=== PATIENT | female | born 1995 | race African-American/Black ===

== ENCOUNTER 2020-07-31 09:54 | Emergency (ER) | payer OTHER, SELFPAY ==
--- NOTE | 2020-07-31 10:17 | ED.FEMALEGU ---
HPI - Female Genitourinary General Chief complaint: Urogenital-Female Stated complaint: abd pain/foul odor Time Seen by Provider: 07/31/20 10:17 Source: patient and RN notes reviewed Mode of arrival: ambulatory Limitations: no limitations History of Present Illness HPI Narrative: 24-year-old presents to the [facility] with complaints of vaginal discharge and abnormal smell. States that she was seen at [facility] and discharged with nothing on Jul. Tried called but has been unable to get results. No chest pain or ABdominal pain. No nausea vomiting or diarrhea States that in December she delivered a baby but never followed up with [employer] care. Related Data Allergies Allergy/AdvReac Type Severity Reaction Status Date / Time No Known Allergies Allergy Verified 07/31/20 10:17 Review of Systems Review of Systems: Narrative: CONSTITUTIONAL: Denies fever, chills, or sweats. CARDIOVASCULAR: Denies chest pain, palpitations, or edema. RESPIRATORY: Denies cough or dyspnea. GASTROINTESTINAL: Denies abdominal pain, nausea, vomiting, or diarrhea. GENITOURINARY: Denies dysuria or hematuria. Vaginal discharge thick and abnormal smell SKIN: Denies rash or itching. MUSCULOSKELETAL: Denies back pain, joint pain, or myalgia. NEUROLOGIC: Denies headache, numbness, or weakness. PSYCHIATRIC: Denies anxiety or depression. All other systems reviewed are negative, except as documented in HPI. PMFSH Comments At the time of my signature, I reviewed and agree with the nursing past medical, surgical, social, and family history. There is no relevant family history pertinent to the patient complaint. Exam Narrative: Exam Narrative: GENERAL: This is a well-nourished, well-developed patient, in no apparent distress. HEAD: normocephalic, atraumatic. EYES: PERRL. Sclera clear/white. Vision is grossly intact. EARS: External ears normal. NECK: Neck supple, non-tender without lymphadenopathy, masses or thyromegaly. CARDIOVASCULAR: Regular rate and rhythm without murmurs, gallops, or rubs. RESPIRATORY: Clear to auscultation. Breath sounds equal bilaterally. No wheezes, rales, or rhonchi. GASTROINTESTINAL: Abdomen soft, non-tender, nondistended. SKIN: warm, intact with no suspicious lesions or rash, good texture and turgor. NEURO: awake, alert, and oriented to person, place and time. There were no obvious focal neurologic abnormalities. EXTREMITIES: No clubbing, cyanosis, or edema. No joint tenderness, effusion, or edema noted. BACK: Nontender without deformity or crepitance. No flank tenderness. : General: Yes no CVA tenderness Speculum Exam - Vagina: normal appearance of the vagina and abnormal vaginal discharge white and malodorous Speculum Exam - Cervix: normal appearance of the cervix and Cervical os closed Bimanual exam- vagina & uterus: no cervical motion tenderness Other: Vaginal exam done, chaperoned by Jeremiah BOYLE Back/Spine/Pelvis: Back: no CVA tenderness Course Vital Signs Vital signs: Vital Signs Pulse Rate 73 07/31/20 10:19 Respiratory Rate 20 07/31/20 10:19 Blood Pressure 112/69 07/31/20 10:19 Pulse Oximetry 100 07/31/20 10:19 Pulse Rate 73 07/31/20 11:10 Respiratory Rate 20 07/31/20 11:10 Blood Pressure 112/69 07/31/20 11:10 Pulse Oximetry 100 07/31/20 11:10 Reviewed, within normal limits MDM - Female Genitourinary Differential Diagnosis Differential diagnosis: Likely urinary tract infection, bacterial vaginosis, trichomoniasis, cervicitis and vaginitis Lab Data Labs: Urine Glucose Negative Reference Range: Negative Urine Glucose Negative Reference Range: Negative Urine Bilirubin Negative Reference Range: Negative Urine Bilirubin Negative Ref
[2020-07-31 10:19] VITALS: BP 112/69; PULSE 73; RESP 20; O2SAT 100
[2020-07-31 11:10] VITALS: BP 112/69; PULSE 73; RESP 20; O2SAT 100
--- NOTE | 2020-07-31 11:10 | PC.NURSE ---
vag exam complete
== END 2020-07-31 11:39 | disposition home or self-care (01) ==
PROVIDERS: Emergency Provider Nurse Practitioner
DX: N76.0 Acute vaginitis (principal)
CPT/HCPCS: 81003; 87070; 87491; 87591; 87661; 99204; G0463